=== PATIENT | male | born 2000 | race African-American/Black ===

== ENCOUNTER 2022-01-26 13:22 | Emergency (ER) | payer SELFPAY ==
[~2022-01-26] VITALS: Ht 182.9 cm; Wt 71.0 kg
[2022-01-26 13:26] VITALS: BP 123/66
--- NOTE | 2022-01-26 13:27 | PHYS DOC ---
General Adult EDM: Chief Complaint: ASTHMA HPI: HPI: Patient is a 21-year-old male who presents here with report of "asthma attack." He has asthma, smokes marijuana, smokes cigarettes, is also exposed to secondhand smoke. He reported an episode of wheezing earlier today. Symptoms have completely resolved. He denies cough, purulent sputum production, hemoptysis, fevers or chills. Denies chest pain. Denies any active dyspnea. He denies dizziness, weakness, syncope, palpitations. He reports that he felt anxious, while he was playing video games, felt like he was wheezing, symptoms lasted a few minutes and have remained resolved since that time. He has been out of albuterol inhaler since last summer. He does not currently have a PCP with whom he can follow-up. Review of Systems: Review of Systems: Constitutional: Denies fever or chills HENT: Denies nasal congestion or sore throat Respiratory: Denies cough or hemoptysis. Brief episode of dyspnea and wheezing, now resolved. Cardiovascular: Denies chest pain or edema GI: Denies abdominal pain, nausea, vomiting Integument: Denies rash Neurologic: Denies headache, focal weakness or sensory changes Psychiatric: Brief episode of anxiety. Physical Exam: PE: Constitutional: Well developed, well nourished, no acute distress, non-toxic appearance. [] HENT: Normocephalic, atraumatic, oropharynx is patent and clear, no facial or oral swelling. Mucous membranes are moist. Voice is clear. Eyes: PERRL, EOMI, conjunctiva normal, no discharge. [] Neck: Normal range of motion, no tenderness, supple, no stridor. Trachea is midline. No JVD. Cardiovascular:Heart rate regular rhythm, was 2 radial pulses, well-perfused, no cyanosis Lungs & Thorax: Lungs are clear to auscultation bilateral without rales, rhonchi or wheezes. No stridor. Equal chest rise. No retractions, no tachypnea. No evidence of respiratory distress Abdomen: Alirio is soft, nondistended, nontender to palpation. No palpable masses organomegaly. Skin: Warm, dry, no erythema, no rash. [] Back: No tenderness, no CVA tenderness. [] Extremities: No tenderness, no cyanosis, no clubbing, ROM intact, no edema. Calf tenderness. Neurologic: Alert and oriented X 3, normal motor function, normal sensory function, no focal deficits noted. [] Psychologic: Highly anxious, cooperative. EKG: EKG: [] Radiology/Procedures: Radiology/Procedures: [] Heart Score: C/O Chest Pain: No Risk Factors: Risk Factors: DM, Current or recent (<one month) smoker, HTN, HLP, family history of CAD, obesity. Risk Scores: Score 0 - 3: 2.5% MACE over next 6 weeks - Discharge Home Score 4 - 6: 20.3% MACE over next 6 weeks - Admit for Clinical Observation Score 7 - 10: 72.7% MACE over next 6 weeks - Early Invasive Strategies Course & Med Decision Making: Course & Med Decision Making There is no indication for emergency imaging, lab or further invasive exams at this time. The patient is asymptomatic, lungs are clear. Vital signs are stable. Oxygen saturation 99% on room air. I will refill his albuterol inhaler. No indication for systemic steroids. I recommend he stop smoking tobacco, stop smoking marijuana, avoid secondhand smoke. He should follow-up with the PCP for routine care and for follow-up of his asthma. Return precautions are given. He verbalizes understanding. Darcy Disclaimer: Darcy Disclaimer: This electronic medical record was generated, in whole or in part, using a voice recognition dictation system. Departure Departure: Impression: Primary Impression: History of asthma Disposition: 01 HOME / SELF CARE / HOMELESS Condition: GOOD Patient Instructions: Asthma, Adult Additional Instructions: Please stop smoking marijuana, please stop smoking tobacco. Use inhalers as needed/as directed. Return to the ER for severe chest pain, refractory wheezing, coughing up blood, temperature 100.4 or higher or for any other concerns. Follow-up with your primary care physician. Scripts Albuterol Sulfate (VENTOLIN HFA INHALER) 18 Gm Hfa.aer.ad 2 PUFF IH PRN Q4HRS PRN for FOR ASTHMA, #1 EACH 2 Refills Prov: NATHALIE DYER DO 01/26/22 NATHALIE DYER DO Jan 26, 2022 13:27
[2022-01-26] MEDS ORDERED: ALBU2.5V8 IH (13:34)
== END 2022-01-26 13:52 | disposition home or self-care (01) ==
LOC: ER 13:22
DX: R06.2 Wheezing (principal); R06.00 Dyspnea, unspecified; J45.909 Unspecified asthma, uncomplicated; F17.210 Nicotine dependence, cigarettes, uncomplicated; F12.10 Cannabis abuse, uncomplicated
CPT/HCPCS: 99283